=== PATIENT | female | born 1975 | race African-American/Black ===

== ENCOUNTER 2019-07-25 06:01 | Day surgery (SDC) | payer OTHER ==
[~2019-07-25] VITALS: Ht 154.9 cm; Wt 77.6 kg
[~2019-07-25 06:01] MED LIST: NORCO 5-325 TA1 EAC1 PO; TYLENOL325 MG PO; ZOFRAN4 MG PO
[2019-07-25 06:58] VITALS: BP 113/71
[2019-07-25] MEDS ORDERED: NORCO 5-325 TA1 EAC1 PO (08:40)
[2019-07-25 10:46] VITALS: BP 113/71
--- NOTE | 2019-07-25 14:33 | O ---
[facility] [place] [address] OPERATIVE REPORT Name: LAWRENCE TO Room #: 150-1 [facility].#: [id number] Admission: 07/25/19 Attend Phys: Leon Prakash MD Discharge: Date of : 79 Report #: [id number] THIS REPORT FOR: cc: RICHARD - Huma family physician/PCP RICHARD - Huma family physician/PCP Leon Prakash MD ~ CC: RICHARD physician/PCP Leon Prakash DATE OF SERVICE: 07/25/[address] Leon Prakash. PREOPERATIVE DIAGNOSES: Cholelithiasis, cholecystitis, biliary colic. POSTOPERATIVE DIAGNOSES: Cholelithiasis, cholecystitis, biliary colic. PROCEDURE: Laparoscopic cholecystectomy. SURGEON: Leon Prakash MD ANESTHESIA: General. DESCRIPTION OF PROCEDURE: The patient was brought to the operating room and placed on operative table in the supine position. Sequential compression devices were in place for DVT prophylaxis. She received an appropriate preoperative dose of Mefoxin. The patient underwent a general endotracheal anesthesia and the abdomen was then prepped and draped in a sterile fashion. Skin and subcutaneous tissue were then infiltrated around the umbilicus using 0.5% Marcaine. Transverse infraumbilical skin incision was performed through a previous incision scar using a #11 scalpel blade. Hemostasis obtained using electrocautery. Dissection was carried down through subcutaneous tissue to the fascia where previous umbilical hernia had been repaired. This was opened using the curved Dodge scissors and the peritoneum was entered and a pursestring suture of 0 Vicryl was then placed in the fascia. A 12 mm disposable Renetta port was then inserted through the opening and held in place with the balloon port and the pursestring suture. Pneumoperitoneum was obtained to a level of 10-15 mmHg. Laparoscope was inserted through this port and exploration was performed and 2 lateral 5 mm Surgiport as well as an upper midline 11 mm Surgiport were all inserted under direct visualization after infiltration with 0.5% Marcaine. There were multiple adhesions around the gallbladder and the lateral edge of the liver. There were no other intraabdominal abnormalities. The gallbladder was then grasped and retracted superiorly and the adhesions around the liver and gallbladder were carefully dissected free using the hook electrocautery and [place] dissector. The cystic duct and artery were then carefully dissected free. The cystic common bile duct junction was clearly identified along with [facility] [address] [place] [address] OPERATIVE REPORT Name: LAWRENCE TO Octavia Room #: 150-1 [facility].Red#: [id number] Admission: 07/25/19 Attend Phys: Leon Prakash MD Discharge: Date of : 79 Report #: [id number] the cystic artery, exposing the triangle of safety anterior and posteriorly and clearly visualizing all the structures. The cystic duct was then triply clipped on the common bile duct side and doubly clipped on the gallbladder side and divided with the scissors. The cystic artery was doubly clipped on each side and divided with the scissors. The gallbladder was then dissected free from the bed using the hook electrocautery. The superior portion of the gallbladder was somewhat intrahepatic and there was a small bridge of liver that crossed above the apex of the gallbladder and this was divided using the hook electrocautery to allow for removal of the upper portion of the gallbladder. Gallbladder was then brought out through the periumbilical port and sent as specimen to pathology. The port was then returned to the abdomen. The area was then copiously irrigated with warm saline solution, which was suctioned free and hemostasis was meticulously checked and obtained using the electrocautery. After assuring hemostasis was intact, the ports were then all removed under direct visualization, hemostasis intact at each port site. Pneumoperitoneum was released and the periumbilical port was then also removed under direct visualization, hemostasis intact at that port site as well. The periumbilical fascia was then closed using the 0 Vicryl pursestring suture. The upper midline fascia was then closed using a [id number] 0 Vicryl suture. Skin was then closed using interrupted vertical mattress 5-0 nylon sutures and the wound was dressed with Band-Aids. The patient was then awakened from the general endotracheal anesthesia, extubated, and taken to recovery room in good condition. Estimated blood loss was approximately 10 mL and the patient tolerated procedure well. All sponge, lap and instrument counts correct x 2. <ELECTRONICALLY SIGNED> By: Leon Prakash MD 07/25/19 1433 [id number] Leon Prakash MD /nt
--- NOTE | 2019-07-30 15:13 | PATH ---
[facility] [address] [place] [address] PATHOLOGY RPT PROCEDURE Name: LAWRENCE VAN Room #: DEP [facility]..#: [id number] Admission: 07/25/19 Date of : 79 Discharge: 07/25/19 Report #: [id number] Path Case #: [id number] [facility] Accession Number: [id number] . 01 Material submitted: . gallbladder - GALLBLADDER . 01 Clinical history: . Cholelithiasis, cholecystitis, biliary colic . 02 Diagnosis: Gallbladder "gallbladder", cholecystectomy: - Moderate chronic cholecystitis with cholelithiasis. (ARIANA/db; 07/30/2019) LBQ 07/30/2019 1033 Local . 02 Electronically signed: . Julian Maria MD, Pathologist NPI- [id number] . 01 Gross description: . The specimen is received in formalin labeled "Lawrence Van, gallbladder" and consists of an intact pink-reno smooth shiny gallbladder measuring 8.7 x 2.4 x 2.0 cm. The margin is inked black. Opening reveals a lumen filled with tenacious brown green bile and 4 multifaceted brown calculi measuring between 0.9 and 1.1 cm. The mucosa is green-brown with yellow flecks and an average wall thickness of 0.1 cm. No masses are identified. Analysis Consultant sections are submitted in A1. (SDY; 07/27/2019) SYU/SYU 07/27/2019 1713 [facility] . 02 Pathologist provided ICD-10: K80.10 . 02 CPT . 066665 Specimen Comment: A courtesy copy of this report has been sent to [phone] Specimen Comment: Report sent to Performed at: [address], [place] [id number] MD Jayson Menon MD Phone: [phone] Performed at: [address] [id number] MD Georgiana Medellin MD Phone: [phone]
== END 2019-07-25 14:10 | disposition home or self-care (01) ==
LOC: OR 06:01 → TBA 06:03 → OR 08:46
DX: K80.10 Calculus of gallbladder with chronic cholecystitis without obstruction (principal); Z11.59 Encounter for screening for other viral diseases; Z98.890 Other specified postprocedural states; Z79.899 Other long term (current) drug therapy; Z87.891 Personal history of nicotine dependence; Z91.040 Latex allergy status
CPT/HCPCS: 50010; 50101; 50411; 50555; 50558; 51474; 51489; 52266; 53314; 56462; 56524; 56528; 62110; 62900; 70005